=== PATIENT | male | born 1975 | race African-American/Black ===

== ENCOUNTER 2018-11-14 13:54 | Emergency (ER) | payer MEDICAID, MEDICARE ==
[~2018-11-14] VITALS: Ht 175.3 cm; Wt 86.0 kg
[2018-11-14] MEDS ORDERED: KETOROLAC 30MG/ML VIAL IV STA (15:50)
[2018-11-14] MEDS ORDERED: SUMATRIPTAN SUCCINATE 6MG/0.5ML VIAL SUBCUT ONE (16:00)
[2018-11-14] MEDS ORDERED: METOCLOPRAMIDE HCL 10MG/2ML VIAL IV ONE (16:00)
[2018-11-14 16:28] LABS: CHLORIDE 106 mEq/L (98-107)
[2018-11-14 16:36] LABS: BASOPHILS % 1.4 % (0.0-2.0); EOSINOPHILS % 2.7 % (0.0-5.0); HEMATOCRIT. 44.4 % (42.0-52.0); HEMOGLOBIN. 14.2 g/dL (14.0-18.0); LYMPHOCYTES % 23.5 % (20.0-50.0); MEAN CORPUSCULAR HEMOGLOBIN 22.5 pg (28.0-32.0); MEAN PLATELET VOLUME 8.6 fl (7.4-10.4); MONOCYTES % 5.8 % (2.0-8.0); NEUTROPHILS % 66.6 % (40.0-76.0); PLATELET 204 x1000/uL (130-400); RED BLOOD CELL COUNT 6.34 mill/uL (4.7-6.1); RED CELL DISTRIBUTION WIDTH 16.5 % (11.6-14.6)
[2018-11-14 17:35] VITALS: BP 151/88
[2018-11-14 17:44] LABS: PLATELET ESTIMATE NORMAL
== END 2018-11-14 18:10 | disposition home or self-care (01) ==
LOC: ER 13:54
DX: R51 Headache (principal); I10 Essential (primary) hypertension; I69.354 Hemiplegia and hemiparesis following cerebral infarction affecting left non-dominant side; H54.62 Unqualified visual loss, left eye, normal vision right eye; Z88.0 Allergy status to penicillin
CPT/HCPCS: 36415; 70450; 80053; 85025; 96372; 96374; 96375; 99284; J1885; J2765; J3030

== ENCOUNTER 2025-03-01 15:42 | Inpatient (IN) | payer MEDICAID ==
[~2025-03-01] VITALS: Ht 162.6 cm; Wt 74.8 kg
[~2025-03-01 15:42] MED LIST: ASPI-1406 PO; CLOP-31 PO; LIP40 PO; TAMS-54 PO
[2025-03-01 15:51] VITALS: O2SAT 96
[2025-03-01] MEDS: ACETAMINOPHEN 500MG TABLET PO ONE (17:10)
[2025-03-01] MEDS ORDERED: ACET-2708 MT (17:38)
[2025-03-01] MEDS: HYDROCODONE/ACETAMINOPHEN 5/325MG TABLET PO ONE (21:45)
[2025-03-01 21:59] LABS: BASOPHILS % 1.0 % (0.0-2.0); EOSINOPHILS % 1.3 % (0.0-5.0); HEMATOCRIT. 43.0 % (42.0-52.0); HEMOGLOBIN. 13.6 g/dL (14.0-18.0); LYMPHOCYTES % 19.5 % (20.0-50.0); MEAN PLATELET VOLUME 8.6 fl (7.4-10.4); MONOCYTES % 7.7 % (2.0-8.0); NEUTROPHILS % 70.5 % (40.0-76.0); PLATELET 227 x1000/uL (130-400); RED BLOOD CELL COUNT 6.34 mill/uL (4.7-6.1); RED CELL DISTRIBUTION WIDTH 16.7 % (11.6-14.6)
[2025-03-01 22:03] LABS: ADD RBC MORPHOLOGY YES
[2025-03-01 22:13] LABS: CREATININE 1.1 mg/dL (0.6-1.3)
[2025-03-01 22:14] LABS: UREA NITROGEN BLOOD 13 mg/dL (9-23)
[2025-03-01 22:15] LABS: ASPARTATE AMINOTRANSFERASE 16 IU/L (<34)
[2025-03-01 22:16] LABS: BILIRUBIN DIRECT 0.3 mg/dL (<=3.0); BILIRUBIN TOTAL 0.8 mg/dL (0.1-1.0); PROTEIN TOTAL 6.7 g/dL (6.0-8.3)
[2025-03-01 22:42] LABS: PLATELET ESTIMATE NORMAL
[2025-03-01] MEDS ORDERED: NALOXONE HCL 0.4MG/ML VIAL IV PRN (22:45)
[2025-03-01] MEDS ORDERED: ONDANSETRON HCL 4MG/2ML INJ IV PRN (22:45)
[2025-03-01] MEDS ORDERED: CLONIDINE 0.1MG TABLET PO PRN (22:45)
[2025-03-01] MEDS ORDERED: MAGNESIUM/ALUMINUM HYDROXIDE/SIMETHICONE 30ML UDC PO PRN (22:45)
[2025-03-02 01:37] VITALS: BP 137/97; PULSE 77; RESP 18; TEMP 36.3624
[2025-03-02] MEDS: HYDROCODONE/ACETAMINOPHEN 5/325MG TABLET PO PRN (02:12)
[2025-03-02 04:00] VITALS: BP 124/76; PULSE 69; RESP 17; TEMP 36.7; O2SAT 95
[2025-03-02 08:00] VITALS: BP 131/80; PULSE 79; RESP 16; TEMP 37.2; O2SAT 94
[2025-03-02] MEDS: ENOXAPARIN 40MG/0.4ML SYR SUBCUT SCH (08:40)
[2025-03-02] MEDS: PANTOPRAZOLE SODIUM 40 MG/VIAL IV SCH (08:40)
[2025-03-02 09:42] LABS: BASOPHILS % 1.0 % (0.0-2.0); EOSINOPHILS % 2.2 % (0.0-5.0); HEMATOCRIT. 43.2 % (42.0-52.0); HEMOGLOBIN. 13.5 g/dL (14.0-18.0); LYMPHOCYTES % 23.6 % (20.0-50.0); MEAN PLATELET VOLUME 8.9 fl (7.4-10.4); MONOCYTES % 10.0 % (2.0-8.0); NEUTROPHILS % 63.2 % (40.0-76.0); PLATELET 218 x1000/uL (130-400); RED BLOOD CELL COUNT 6.36 mill/uL (4.7-6.1); RED CELL DISTRIBUTION WIDTH 16.6 % (11.6-14.6)
[2025-03-02 10:05] LABS: CREATININE 1.1 mg/dL (0.6-1.3); UREA NITROGEN BLOOD 15 mg/dL (9-23)
[2025-03-02] MEDS: ACETAMINOPHEN 325MG TABLET PO PRN (10:41)
[2025-03-02 12:00] VITALS: BP 132/80; PULSE 72; RESP 20; TEMP 36.6; O2SAT 100
[2025-03-02 12:04] LABS: HEPATITIS C AB NON REACTIVE (Neg) (Negative)
[2025-03-02 16:00] VITALS: BP 123/76; PULSE 70; RESP 20; TEMP 36.3; O2SAT 93
[2025-03-02 20:00] VITALS: BP 121/90; PULSE 75; RESP 18; TEMP 37; O2SAT 96
[2025-03-02] MEDS ORDERED: INFLUENZA VACCINE 05/PF 0.5 ML SYRINGE IM ONE (21:00)
[2025-03-02] MEDS: ZOLPIDEM TARTRATE 5MG TABLET PO PRN (21:24)
[2025-03-03] VITALS: BP 128/81; PULSE 70; RESP 17; TEMP 36.8; O2SAT 100
[2025-03-03 04:00] VITALS: BP 125/85; PULSE 78; RESP 19; TEMP 36.7; O2SAT 95
[2025-03-03 06:19] LABS: BASOPHILS % 0.5 % (0.0-2.0); EOSINOPHILS % 1.6 % (0.0-5.0); HEMATOCRIT. 44.8 % (42.0-52.0); HEMOGLOBIN. 13.8 g/dL (14.0-18.0); LYMPHOCYTES % 24.6 % (20.0-50.0); MEAN PLATELET VOLUME 9.3 fl (7.4-10.4); MONOCYTES % 9.3 % (2.0-8.0); NEUTROPHILS % 64.0 % (40.0-76.0); PLATELET 238 x1000/uL (130-400); RED BLOOD CELL COUNT 6.65 mill/uL (4.7-6.1); RED CELL DISTRIBUTION WIDTH 16.8 % (11.6-14.6)
[2025-03-03 06:21] LABS: CREATININE 1.2 mg/dL (0.6-1.3)
[2025-03-03 06:22] LABS: UREA NITROGEN BLOOD 17 mg/dL (9-23)
[2025-03-03 08:00] VITALS: BP 125/75; PULSE 73; RESP 18; TEMP 37.1; O2SAT 95
[2025-03-03 12:00] VITALS: BP 127/71; PULSE 64; RESP 18; TEMP 36.8; O2SAT 97
[2025-03-03 16:00] VITALS: BP 140/89; PULSE 76; RESP 17; TEMP 36.9; O2SAT 97
[2025-03-03 20:00] VITALS: BP 141/101; PULSE 79; RESP 18; TEMP 36.7; O2SAT 97
[2025-03-04] VITALS: BP 178/113; PULSE 81; RESP 20; TEMP 36.6; O2SAT 98
[2025-03-04 04:00] VITALS: BP 151/87; PULSE 81; RESP 18; TEMP 36.6; O2SAT 98
[2025-03-04 08:00] VITALS: BP 151/97; PULSE 97; RESP 19; TEMP 36.4; O2SAT 97
[2025-03-04 10:00] LABS: BASOPHILS % 1.2 % (0.0-2.0); EOSINOPHILS % 2.2 % (0.0-5.0); HEMATOCRIT. 40.6 % (42.0-52.0); HEMOGLOBIN. 12.8 g/dL (14.0-18.0); LYMPHOCYTES % 19.6 % (20.0-50.0); MEAN PLATELET VOLUME 8.5 fl (7.4-10.4); MONOCYTES % 13.7 % (2.0-8.0); NEUTROPHILS % 63.3 % (40.0-76.0); PLATELET 205 x1000/uL (130-400); RED BLOOD CELL COUNT 5.98 mill/uL (4.7-6.1); RED CELL DISTRIBUTION WIDTH 16.8 % (11.6-14.6)
[2025-03-04 10:09] LABS: ADD RBC MORPHOLOGY NO
[2025-03-04 10:42] LABS: CREATININE 1.1 mg/dL (0.6-1.3); UREA NITROGEN BLOOD 15 mg/dL (9-23)
[2025-03-04 12:00] VITALS: BP 143/82; PULSE 65; RESP 18; TEMP 36.4; O2SAT 96
[2025-03-04] MEDS ORDERED: TOPUD PO (23:15)
== END 2025-03-04 13:02 | disposition home or self-care (01) | DRG 351 ==
LOC: ER 15:42 → 8EST 22:35 → EDBEDREQ 22:39 → EDBEDREQTM 22:39 → ENRESERV 23:10
PROVIDERS: ADMIT Internal Medicine; ATTEND Internal Medicine
DX: M70.22 Olecranon bursitis, left elbow (principal); I69.354 Hemiplegia and hemiparesis following cerebral infarction affecting left non-dominant side; E78.5 Hyperlipidemia, unspecified; I10 Essential (primary) hypertension; Z59.01 Sheltered homelessness; Z88.0 Allergy status to penicillin; Z79.82 Long term (current) use of aspirin; Z79.899 Other long term (current) drug therapy; Z79.01 Long term (current) use of anticoagulants
CPT/HCPCS: 36415; 71045; 73080; 80048; 80076; 85025; 86705; 87340; 90686; 93970; 97162; 99285; J1650; J2470